=== PATIENT | male | born 2000 | race Caucasian/White ===

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

== ENCOUNTER 2022-01-07 18:42 | Emergency (ER) | payer OTHER ==
[~2022-01-07 18:42] MED LIST: LODINE CAP 300300 MG PO
[2022-01-07] MEDS ORDERED: CLEOCIN HCL300 MG PO (20:24)
[2022-01-07] MEDS ORDERED: IBUPROFEN600 MG PO (20:24)
== END 2022-01-07 20:49 | disposition home or self-care (01) ==
LOC: ER1 18:42
DX: K05.219 Aggressive periodontitis, localized, unspecified severity (principal); F17.210 Nicotine dependence, cigarettes, uncomplicated; Z88.0 Allergy status to penicillin; Z87.442 Personal history of urinary calculi
CPT/HCPCS: 64400; 96372; 96374; 99283; J1885

== ENCOUNTER 2022-01-10 13:58 | Emergency (ER) | payer SELFPAY ==
[~2022-01-10 13:58] MED LIST changes: +CLEOCIN HCL300 MG PO; +IBUPROFEN600 MG PO
== END 2022-01-10 15:56 | disposition home or self-care (01) ==
LOC: ER1 13:58
DX: K04.7 Periapical abscess without sinus (principal); F17.210 Nicotine dependence, cigarettes, uncomplicated; Z88.0 Allergy status to penicillin; Z88.2 Allergy status to sulfonamides; Z88.5 Allergy status to narcotic agent
CPT/HCPCS: 99282

== ENCOUNTER 2022-03-09 17:10 | Emergency (ER) | payer OTHER ==
[2022-03-09 19:17] LABS: HEMOGLOBIN 15.7 gm/dl (14.0-17.5); RED BLOOD COUNT 4.8 M/UL (4.20-5.50); WHITE BLOOD COUNT 8.8 K/UL (4.5-11.0)
[2022-03-09 19:50] LABS: BUN/CREATININE RATIO 12 (0-10)
[2022-03-09] MEDS ORDERED: DELSYM30 MG/5 ML PO (22:12)
[2022-03-09] MEDS ORDERED: ZOFRAN 4 MG TAB4 MG PO (22:12)
== END 2022-03-09 22:18 | disposition home or self-care (01) ==
LOC: ER1 17:10
PROVIDERS: Physician Assistant Medical
DX: B34.9 Viral infection, unspecified (principal); Z20.822 Contact with and (suspected) exposure to COVID-19; F17.210 Nicotine dependence, cigarettes, uncomplicated; Z88.0 Allergy status to penicillin; Z88.5 Allergy status to narcotic agent; Z88.2 Allergy status to sulfonamides
CPT/HCPCS: 0240U; 80053; 81001; 83690; 85025; 96374; 99283; J2405

== ENCOUNTER 2022-03-13 16:33 | Emergency (ER) | payer OTHER ==
[~2022-03-13 16:33] MED LIST changes: +DELSYM30 MG/5 ML PO; +ZOFRAN 4 MG TAB4 MG PO
== END 2022-03-13 18:40 | disposition home or self-care (01) ==
LOC: ER1 16:33
DX: R11.10 Vomiting, unspecified (principal); F17.210 Nicotine dependence, cigarettes, uncomplicated; Z88.0 Allergy status to penicillin
CPT/HCPCS: 99283